=== PATIENT | male | born 1930 | race Caucasian/White ===

== ENCOUNTER 2016-11-26 22:22 | Emergency (ER) | payer OTHER ==
[~2016-11-26] VITALS: Ht 182.9 cm; Wt 83.8 kg
[2016-11-26 22:28] VITALS: TEMP 36.6; Ht 182.9 cm; Wt 83.8 kg
[2016-11-26] MEDS ORDERED: LIDOCAINE/EPINEPH/TETRACAINE 1 EA SYR EXT STA (22:49)
--- NOTE | 2016-11-27 00:08 | EMERGENCY ROOM VISIT NOTE ---
History First contact with patient: 22:33 Chief Complaint: HEAD INJURY (MINOR) Stated Complaint: BLEEDING HEAD AND HAND, ON BLOOD THINNERS History of Present Illness The patient is a 86 year old male who presents to the Emergency Room with complaints of head injury this afternoon [place]. Patient states him and his friend were trying to chop down a tree and the branch fell on his head and then he fell the ground. This happened at 2 PM. He presents to the ER at 10:30 PM. Tetanus is current. Patient complains of scalp laceration and left hand abrasion. He complains of a mild headache. Patient denies loss of conscious, neck pain, back pain, chest pain, dyspnea, facial pain, abdominal pain, numbness, tingling, weakness. No other medical complaints per patient. He is able to ambulate without difficulties. [facility] I did have nursing contact the hospital to obtain the records. Review of Systems See HPI for pertinent positives & negatives. A total of 10 systems reviewed and were otherwise negative. Past Medical/Surgical History Hyperlipidemia, hypertension, bowel resection, cholecystectomy, patient is on Coumadin for A fib Social History Smoking Status: Never Smoker Physical Exam Vital Signs Date Time Temp Pulse Resp B/P Pulse Ox O2 Delivery O2 Flow Rate FiO2 11/26/16 22:28 36.6 74 16 166/59 97 Room Air Physical Exam PHYSICAL EXAM: VITALS: Vitals are noted on the nurse's note and reviewed by myself. Vital signs stable. GENERAL: Pleasant male, in no acute distress, nondiaphoretic, well-developed well-nourished. SKIN: 4 cm left parietal scalp laceration that is bleeding, skin avulsion to the left hand that appears clean and is not bleeding The~ skin was without obvious lacerations or abrasions. Capillary reflex less than 2 seconds. HEAD: Normocephalic EARS: External auditory canals clear, tympanic membranes pearly bolivar without erythema or effusion bilaterally. No hemotympanums. No haji sign. No mastoid tenderness. EYES: Pupils equal round and reactive to light and accommodation. Conjunctivae without injection, sclerae without icterus. Extraocular movements intact. NOSE: Patent, turbinates without inflammation or discharge. No sinus tenderness. No septal hematoma or bleeding. FACE: No facial bone tenderness. Full range of motion of the jaw without tenderness. MOUTH: Mucous membranes moist. Pharynx without erythema or exudate. Uvula midline. Airway patent. Tongue does not deviate. NECK: Supple without nuchal rigidity. Cervical spine is nontender. Full range of motion of the neck without tenderness. No JVD. HEART: Regular rate and rhythm without murmurs gallops or rubs. LUNGS: Clear to auscultation bilaterally without wheezes, rales or rhonchi. No dullness to percussion. No retractions or accessory muscle use. No chest wall tenderness. ABDOMEN: Positive bowel sounds x 4. Normal tympanic percussion. Soft, nontender, without masses or organomegaly. No guarding or rebound tenderness. MUSCULOSKELETAL: No tenderness of the thoracic or lumbar spine. No tenderness with pelvic rocking. Full range of motion without tenderness to palpation in all extremities. Normal gait. Strength 5/5 throughout. Peripheral pulses 2+. NEURO: Patient was alert and oriented to person place and time. Normal Mini- Mental status exam. Normal sensation to light and sharp touch. Negative Romberg and pronator drift. Cerebellar function intact. No focal neurological deficits. Medical Decision & Procedures Medications Administered Medications (Trade) Dose Ordered Sig/Kat Route Start Time Stop Time Status Last Admin Dose Admin Tetracaine/ Epinephrine/ Lidocaine (L.e.t. Gel 4%/ 1:100/0.5%) 1 ea NOW STAT EXT 11/26/16 22:49 11/26/16 22:50 DC 11/26/16 23:15 1 EA Procedure Location: Scalp Total length: 4cm Complexity: Simple Verbal consent was obtained after the risks and benefits were explained, including but not limited to bleeding, scarring, infection, pain, and bone/ nerve damage. At this time, the risks of the procedure are less than the risks of NOT performing the procedure. A time out was taken and the correct patient and site identified. The scalp was prepped with betadine. The target area was anesthetized with LET Copious irrigation was performed using saline. The skin was re-prepped with betadine, the hair cleared from the wound, and a sterile field set. The wound was explored for foreign bodies and none found. Debridement was not performed. The wound edges were approximated using 10 surgical tian in the standard fashion. Hemostasis and excellent approximation was achieved. Antibacterial ointment and a sterile dressing applied. Detailed wound care instructions and signs and symptoms of infection reviewed with the pt. No complications and the patient tolerated the procedure well. ED Course Prior records/ancillary studies reviewed. Triage Nursing notes reviewed. Additional history obtained from friend. The patient's history was concerning for traumatic head injury Differential diagnosis: Etiologies such as concussion, contusion, fracture, subdural hematoma, epidural hematoma, intraparenchymal hemorrhage, as well as other traumatic pathologies were entertained. Physical examination findings: As above. ER treatment provided: Wounds cleansed and dressed. Laceration repaired as above On reassessment the patient felt better. Diagnostics interpreted by me: Imaging studies: CT HEAD: Left superior scalp hematoma with laceration injury. No . Acute ICH, mass effect or edema. No skull fracture. Diffuse parenchymal atrophy. Chronic ischemic small vessel white matter disease. 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 No midline shift or hydrocephalus. Chronic inflammatory left maxillary sinus disease. CT C SPINE: No acute or healing fracture or malalignment. Diffuse osteopenia. Multilevel degenerative changes. No critical central canal stenosis. No significant neuroforaminal stenosis. Dense atherosclerotic calcifications of the internal carotid arteries of the neck. Radiologist: Yash Blake M.D. I obtain the records from the other hospital and did review it. Patient has a medical history of atrial fibrillation, ischemic bowel, bowel resection. I did inform the patient of these findings. It appears the patient has a head injury. Patient is on blood thinners so CT imaging was ordered.. Patient was neurovascularly neurologic intact. He is well-appearing. No other injuries are noted. He was able to tolerate fluids and ambulate without difficulties. He was counseled on head injury signs and symptoms and on laceration care. He was advised follow-up family care in a day or 2 or here in the ER sooner for headache, fevers, confusion, worsening signs or symptoms or as needed. By the evaluation outlined above emergent etiologies such as fracture, subdural hematoma, epidural hematoma, intraparenchymal hemorrhage, as well as others were deemed relatively unlikely. The pt informed about the findings as listed above. All questions were answered and pleased with the treatment. Return instructions were outlined and the patient was discharged in stable condition. Case reviewed with my attending Referral: The patient was referred back to their primary care physician for follow-up in 2 to 3 days for a recheck of the current condition. Medical Decision As above Impression Primary Impression: Head injury Additional Impressions: Scalp laceration Fall Abrasion hand Departure Information Dispostion Home / Self-Care Condition GOOD Referrals No Doctor, Assigned (PCP) Patient Instructions My [facility] Additional Instructions Antibiotic ointment and bandage to the areas until healed. Follow up with family doctor or return for any signs of infection (increasing redness, swelling , drainage, or fever). Keep covered when in sun until fully healed then SPF 50 or higher until scar healed. Keep wound clean and dry. No water on the area for 12-24 hrs then no soaking until tian removed. Do not allow any crusting or dried blood to accumulate on tian. If this occurs, use a 1:1 solution of hydrogen peroxide/water on a Q-tip to clean the wound. Use an antibiotic ointment for 3-4 days, then let wound dry. Staple removal in 8 days. Return sooner for any signs of infection (increasing redness, swelling, drainage). Ice and elevate for swelling and pain. Keep covered when in sun until tian removed then SPF 50 or higher for one year. Vitamin E oil if desired two weeks after staple removal for reduction of scar. Read head injury handout and return for any symptoms. Tylenol 1000 mg as needed for pain (Maximum 3000 mg Tylenol in 24 hr period). Avoid alcohol and contact sports/activities for one week and follow up with family doctor prior to returning to these activities if still symptomatic. Ice and elevate head. Return to ER sooner for headache, fevers, confusion, worsening signs or symptoms or as needed. Problem Qualifiers Primary Impression: Head injury Encounter type: initial encounter Qualified Codes: S09.90XA - Unspecified injury of head, initial encounter Additional Impressions: Scalp laceration Encounter type: initial encounter Qualified Codes: S01.01XA - Laceration without foreign body of scalp, initial encounter
[2016-11-27] MEDS ORDERED: ACETAMINOPHEN 500 MG TAB PO STA (00:13)
[2016-11-27] MEDS ORDERED: AMLO-110 PO (00:23)
--- NOTE | 2016-11-27 00:24 | EMERGENCY ROOM VISIT NOTE ---
ED Visit Note First contact with patient: 22:33 Staff note: I have reviewed the Patients chart and have discussed this case with my PA. I generally agree with the ED note and findings.
[2016-11-27] MEDS ORDERED: AMIO200T4 PO (00:25)
[2016-11-27] MEDS ORDERED: ASPI-232 PO (00:26)
[2016-11-27] MEDS ORDERED: ATOR-26 PO (00:27)
[2016-11-27] MEDS ORDERED: CLOT1CRE4 TD (00:29)
[2016-11-27] MEDS ORDERED: FERR1TAB13 PO (00:31)
[2016-11-27] MEDS ORDERED: SILD100T PO (00:32)
[2016-11-27] MEDS ORDERED: TERA5CAP PO (00:33)
[2016-11-27] MEDS ORDERED: MULT-116 PO (00:34)
[2016-11-27] MEDS ORDERED: CMD2 PO (00:36)
[2016-11-27] MEDS ORDERED: CMD4 PO (00:38)
[2016-11-27 00:41] VITALS: BP 161/69; PULSE 61; O2SAT 94
--- NOTE | 2016-11-27 06:42 | DIAGNOSTIC IMAGING REPORT ---
CERVICAL SPINE CT CT DOSE: HISTORY: Trauma tree branch hit head and fall TECHNIQUE: Multiaxial CT images of the cervical spine were performed and reformatted in the sagittal and coronal plane without the use of contrast. COMPARISON: None. FINDINGS: Considerable degenerative disc change throughout the entire cervical region. No evidence for compression deformity. Moderate degenerative changes of posterior elements throughout the entire cervical region. Prevertebral soft tissues are unremarkable. IMPRESSION: Degenerative change. No acute process. Electronically signed by: Alex Coronel M.D. 11/27/2016 6:41 AM Dictated Date/Time: 11/27/2016 6:40 AM
--- NOTE | 2016-11-27 07:12 | DIAGNOSTIC IMAGING REPORT ---
CT SCAN OF THE BRAIN WITHOUT IV CONTRAST CLINICAL HISTORY: Head injury. COMPARISON STUDY: No priors. TECHNIQUE: Unenhanced axial CT scan of the brain is performed from the vertex to the skull base. CT DOSE: 1139.99 mGy.cm FINDINGS: Brain parenchyma: There are age-related involutional changes noting [id number] patchy subcortical and periventricular microangiopathic change. Right occipital encephalomalacia is consistent with a remote infarct. There is no hemorrhage, mass effect, or evidence of acute territorial ischemia by CT criteria. Lai-white matter is preserved. No extra-axial fluid collection is seen. Ventricles, sulci, cisterns: Prominent secondary to involutional change. Intracranial vasculature: There is atherosclerotic calcification of the cavernous carotid and vertebral arteries. Calvarium: The skeletal structures are osteopenic. No depressed calvarial fractures seen. Soft tissues: There is a high left posterior parietal scalp contusion. Sinuses and mastoids: There is moderate mucosal thickening within a diminutive left maxillary antrum. Thickening and sclerosis of the sinus wall suggests chronicity. The remaining visualized paranasal sinuses are clear. The mastoid air cells are well pneumatized. Orbits: The bony orbits are grossly intact. IMPRESSION: 1. Senescent changes as above with no hemorrhage, mass effect, or evidence of acute territorial ischemia by CT criteria. 2. Left parietal scalp contusion. No depressed calvarial fracture is seen. Electronically signed by: Mark Martínez M.D. 11/27/2016 7:11 AM Dictated Date/Time: 11/27/2016 7:05 AM
== END 2016-11-27 00:35 | disposition home or self-care (01) ==
LOC: C.EDB 22:24 → C.EDC 11-27 00:35
DX: S01.01XA Laceration without foreign body of scalp, initial encounter (principal); W22.8XXA Striking against or struck by other objects, initial encounter; E78.5 Hyperlipidemia, unspecified; I10 Essential (primary) hypertension; Z90.49 Acquired absence of other specified parts of digestive tract; I48.91 Unspecified atrial fibrillation; Z79.01 Long term (current) use of anticoagulants